=== PATIENT | female | born 1980 | race Caucasian/White ===

== ENCOUNTER 2021-12-11 18:30 | Emergency (ER) | payer MEDICARE, OTHER ==
[~2021-12-11 18:30] MED LIST: ZOSYN3.375 GM IV
[2021-12-11 19:52] LABS: BILIRUBIN NEGATIVE (NEGATIVE); BLOOD 2+ Ery/uL (NEGATIVE); CLARITY CLEAR (CLEAR); COLOR YELLOW (YELLOW); GLUCOSE (U) NORMAL (NORMAL); LEUKOCYTES 3+ Leu/uL (NEGATIVE); NITRITE POSITIVE (NEGATIVE); PROTEIN TRACE (LOW) mg/dL (NEGATIVE); UROBILINOGEN 0.2 mg/dL (0.2-1.0); pH 7.5 (5.0-9.0)
[2021-12-11 20:08] LABS: BACTERIA 4+; MUCOUS TRACE; URINARY WBC 20-50
[2021-12-11 20:33] LABS: BASOPHIL 0 % (0-2); EOSINOPHIL 0 % (0-5); HCT 36.7 % (37.0-47.0); HGB 12.2 g/dl (12.5-16.0); LYMPHOCYTE 21.8 % (15-48); MCH 28.5 pg (25.0-31.0); MCHC 33.2 g/dL (32.0-36.0); MCV 85.7 fL (78.0-100.0); MONOCYTE 7.1 % (0-12); MPV 9.7 fL (6.0-9.5); NEUTROPHIL 70.7 % (41-80); NRBC 0; PLT 278 K/uL (150-400); RBC 4.28 M/uL (4.20-5.40); RDW 13.9 % (11.5-14.0); WBC 7.1 K/uL (4.0-10.5)
[2021-12-11 21:01] LABS: ALBUMIN 3.2 g/dL (3.4-5.0); BILIRUBIN - TOTAL 0.2 mg/dL (0.2-1.0); BUN/CREAT RATIO (CALC) 33.3 RATIO; CREATININE 0.69 mg/dL (0.51-0.95); TOTAL PROTEIN 8.2 g/dL (6.4-8.2)
== END 2021-12-11 23:59 | disposition home or self-care (01) ==
LOC: FER 18:30
PROVIDERS: Nurse Practitioner Family
DX: K59.00 Constipation, unspecified (principal); N39.0 Urinary tract infection, site not specified; Z88.0 Allergy status to penicillin; Z88.1 Allergy status to other antibiotic agents; Z88.2 Allergy status to sulfonamides; Z88.5 Allergy status to narcotic agent; Z88.8 Allergy status to other drugs, medicaments and biological substances; Z91.040 Latex allergy status; Z91.041 Radiographic dye allergy status
CPT/HCPCS: 36415; 80053; 81001; 85025; 87088